=== PATIENT | male | born 1975 | race Caucasian/White ===

== ENCOUNTER 2019-11-11 11:33 | Emergency (ER) | payer OTHER ==
[2019-11-11] MEDS ORDERED: methylPREDNISolone 125 MG* 2 ML VIAL IV ONE (11:50)
[2019-11-11] MEDS ORDERED: Magnesium Sulfate 2 GM IV* 2 GM/50 ML BAG IVPB ONE (11:50)
--- NOTE | 2019-11-11 12:05 | ED ---
Respiratory - HPI Summary HPI Summary: 44-year-old male presents with cough and shortness breath for the past 3 weeks. He states that three weeks ago he was exposed to someone sick at work. He states he has had a cough and shortness breath. He admits to intermittent chest pain. He was placed on a course of Augmentin and did not seem to improve symptoms. Was then in placed on azithromycin and placed on a steriod pack which he finished 2 days ago. He admits to chest pain intermittently. States it is a sharp pain both sides of his chest. Denies any vomiting. He states he did have a couple episodes of diarrhea. Admits some nausea but no vomiting. No sore throat. Admits to sinus congestion. No fevers or chills. He has been using his inhalers which has been helping. - History of Current Complaint Stated Complaint: CHEST PAIN AND NAUSEA PER PT Time Seen by Provider: 11/11/19 11:38 - Allergy/Home Medications Allergies/Adverse Reactions: Allergies Allergy/AdvReac Type Severity Reaction Status Date / Time NSAIDS (Non-Steroidal Allergy See Comment Verified 11/11/19 12:14 Anti-Inflamma sertraline [From Zoloft] Allergy See Comment Verified 11/11/19 12:14 Home Medications: Home Medications Acetaminophen TAB* [Tylenol TAB*] 650 mg PO Q4H PRN 11/11/19 [History Confirmed 11/11/19] Albuterol 2.5MG/3ML (0.083%)* [Ventolin 2.5 MG/3 ML NEB.KURT*] 2.5 mg INH Q4H PRN 11/11/19 [History Confirmed 11/11/19] Albuterol HFA INHALER* [Ventolin HFA Inhaler*] 2 puff INH Q4H PRN 11/11/19 [ History Confirmed 11/11/19] Azithromycin TAB* [Zithromax TAB (Z-SANAZ) 250 mg #6 tabs] 250 mg PO DAILY [History Confirmed 11/11/19] Budesonide/Formote 80/4.5(NF) [Symbicort 80/4.5 (NF)] 2 puff INH BID 11/11/19 [ History Confirmed 11/11/19] FLUoxetine CAP* [PROzac CAP*] 20 mg PO DAILY 11/11/19 [History Confirmed ] Losartan TAB* [Cozaar TAB*] 100 mg PO DAILY 11/11/19 [History Confirmed 11/11/19 ] Nystatin SUSPENSION* [Nystatin*] 5 ml PO QID 11/11/19 [History Confirmed ] Omeprazole CAP (NF) [Prilosec CAP* 20 MG] 20 mg PO DAILY 11/11/19 [History Confirmed 11/11/19] Tiotropium [place] [Spiriva Respimat] 2 puff INH DAILY 11/11/19 [History Confirmed 11/11/19] guaiFENesin/CODIENE 100mg/10mg [Robitussin AC 100Mg/10Mg in 5 ml] 10 ml PO Q4H PRN MDD 60ml 11/11/19 [History Confirmed 11/11/19] hydrOXYzine HCL TAB* [Atarax 25 MG TAB*] 25 - 50 mg PO Q8H PRN 11/11/19 [ History Confirmed 11/11/19] methylPREDNISolone [Medrol Dosepak 4 MG*] 4 mg PO .SEE SANAZ INSTRUCTION 11/11/19 [History Confirmed 11/11/19] predniSONE 50 mg TAB [Deltasone 50 mg TAB] 50 mg PO DAILY #4 tab 11/11/19 [Rx] traZODone TAB* [Desyrel TAB*] 50 mg PO BEDTIME 11/11/19 [History Confirmed 11/10] PMH/Surg Hx/FS Hx/Imm Hx Endocrine/Hematology History: Denies: Hx Anticoagulant Therapy Cardiovascular History: Reports: Hx Hypertension Respiratory History: Reports: Hx Asthma - Family History Known Family History: Positive: Non-Contributory - Social History Alcohol Use: Occasionally Substance Use Type: Reports: None Review of Systems Negative: Fever Positive: Chest Pain Positive: Shortness Of Breath, Cough Positive: Diarrhea. Negative: Abdominal Pain, Vomiting All Other Systems Reviewed And Are Negative: Yes Physical Exam Triage Information Reviewed: Yes Vital Signs Reviewed: Yes Appearance: Positive: Well-Appearing Skin: Positive: Warm, Dry Head/Face: Positive: Normal Head/Face Inspection Eyes: Positive: Normal, Conjunctiva Clear Respiratory/Lung Sounds: Positive: Breath Sounds Present, Wheezes Cardiovascular: Positive: Normal, RRR Abdomen Description: Positive: Nontender, Soft Bowel Sounds: Positive: Present Musculoskeletal: Positive: Normal Neurological: Positive: Normal Psychiatric: Positive: Normal Procedures - Sedation Patient Received Moderate/Deep Sedation with Procedure: No Diagnostics - Laboratory Result Diagrams: 11/11/19 12:13 11/11/19 12:13 Lab Statement: Any lab studies that have been ordered have been reviewed, and results considered in the medical decision making process. - EKG No standard instances Cardiac Rate: NL EKG Rhythm: Sinus Rhythm Summary of EKG Findings: sinus rhythm Disposition - Course Course Of Treatment: 44-year-old male presents with cough and shortness breath for the past 3 weeks. He states that three weeks ago he was exposed to someone sick at work. He states he has had a cough and shortness breath. He admits to intermittent chest pain. He was placed on a course of Augmentin and did not seem to improve symptoms. Was then in placed on azithromycin and placed on a steriod pack which he finished 2 days ago. He admits to chest pain intermittently. States it is a sharp pain both sides of his chest. Denies any vomiting. He states he did have a couple episodes of diarrhea. Admits some nausea but no vomiting. No sore throat. Admits to sinus congestion. No fevers or chills. He has been using his inhalers which has been helping. On exam wheezes noted. wbc normal. crp normal. flu neg. bnp normal. chest xray normal. feeling better after steriods and magnesium. discussed with not add on antibiotics as likely viral. will test for covid. will place on course of steriods. patient understand and agrees with plan. - Differential Dx - Cardiopulmonary Differential Diagnoses - Cardiopulmonary: Asthma, Bronchitis, Lower Resp Infection - Diagnoses Provider Diagnoses: Bronchitis Discharge ED - Sign-Out/Discharge Documenting (check all that apply): Patient Departure - Discharge Plan Condition: Good Disposition: HOME Prescriptions: predniSONE 50 mg TAB [Deltasone 50 mg TAB] 50 mg PO DAILY #4 tab Patient Education Materials: Acute Bronchitis (ED) Forms: COVID-19 Tested & Isolation Referrals: No Primary Care Phys,NOPCP [Primary Care Provider] - Additional Instructions: You have been tested for coronavirus. The department of health will contact you with results when available and with any additional instruction. You should stay in your house and self quarantine. You should wear a mask if you're outside of your personal room. We encourage handwashing as well as limited contact with other people. Use inhaler one puff every 4 hours for cough as needed Take steroid once a day for 4 days starting tomorrow Use saline in the nose take Tylenol every 6 hours for pain as needed Follow up with primary care physician in 5 days Return to ED if develop any new or worsening symptoms - Billing Disposition and Condition Condition: GOOD Disposition: Home - Attestation Statements Provider Attestation: I was available for consult. This patient was seen by the JESUS. The patient was not presented to, seen by, or examined by me. -Hussain
[2019-11-11 12:38] LABS: ABS Eosinophils 0.1 10^3/ul (0-0.6); ABS Lymphocytes 1.8 10^3/ul (1.0-4.8); ABS Monocytes 0.5 10^3/ul (0-0.8); ABS Neutrophils 1.5 10^3/ul (1.5-7.7); Eosinophil % 1.8 %; Hematocrit 44 % (42-52); Hemoglobin 15.3 g/dL (14.0-18.0); Lymphocyte % 46.9 %; Mean Corpuscular HGB Conc 35 g/dL (31-36); Mean Corpuscular Hemoglobin 31 pg (27-31); Mean Corpuscular Volume 88 fL (80-94); Mean Platelet Volume 8.8 fL (7.4-10.4); Platelet Count 221 10^3/uL (150-450); Red Blood Count 5.01 10^6 /uL (4.18-5.48); Red Cell Distribution Width 14 % (10-15); White Blood Count 3.9 10^3/uL (3.5-10.8)
[2019-11-11 12:56] LABS: ALT 16 U/L (7-52); AST 16 U/L (13-39); Albumin 4.4 g/dL (3.2-5.2); Albumin/Globulin Ratio 1.8 (1-3); Alkaline Phosphatase 58 U/L (34-104); Anion Gap 6 mmol/L (2-11); BUN/Creatinine Ratio 11.2 (8-20); Blood Urea Nitrogen 11 mg/dL (6-24); C Reactive Protein < 1.00 mg/L (<8.01); CO2 Carbon Dioxide 25 mmol/L (22-32); Calcium 9.1 mg/dL (8.6-10.3); Chloride 105 mmol/L (101-111); EGFR African American 100.1 (>60); EGFR Non-African American 82.7 (>60); Globulin 2.4 g/dL (2-4); Glucose 107 mg/dL (70-100); Sodium 136 mmol/L (135-145); Total Protein 6.8 g/dL (6.4-8.9)
[2019-11-11 12:57] LABS: Influenza A Molecular Negative (Negative); Influenza B Molecular Negative (Negative)
[2019-11-11 14:21] VITALS: BP 122/79
== END 2019-11-11 14:20 | disposition home or self-care (01) ==
LOC: ED 11:33
DX: J40 Bronchitis, not specified as acute or chronic (principal); R05 Cough; R06.02 Shortness of breath; I10 Essential (primary) hypertension; R19.7 Diarrhea, unspecified; Z88.8 Allergy status to other drugs, medicaments and biological substances; Z79.899 Other long term (current) drug therapy; Z20.828 Contact with and (suspected) exposure to other viral communicable diseases
CPT/HCPCS: 36415; 71045; 80053; 83605; 83880; 84484; 85025; 86140; 87040; 87635; 93005; 96374; 96375; 99283; G2023; J2930; J3475